=== PATIENT | male | born 1965 | race Caucasian/White ===

== ENCOUNTER 2018-04-07 20:10 | Emergency (ER) | payer BC ==
[~2018-04-07] VITALS: Ht 180.3 cm; Wt 117.9 kg
[2018-04-07 20:25] VITALS: BP 159/90
--- NOTE | 2018-04-07 20:27 | NUR ---
TO BED # 12 AMBULATORY, REPORT GIVEN TO LIZ DEL RIO.
--- NOTE | 2018-04-07 20:39 | NUR ---
52/M CAME IN ED WITH FAMILY/FRIEND, C/O 07/31 LOWER ABD PAIN, X4 DAYS. PT REPORTS RECENT TRAVEL FROM [place], PT WAS TREATED AT A HOSPITAL IN [place] 3 DAYS AGO. PT REPORTS FEVER OF 102 3 DAYS AGO, AFEBRILE AT THIS TIME. PT REPORTS SLIGHT SOB. PT REPORTS PT DENIES CP, COUGH, N/V/D; SKIN IS INTACT, PINK/WARM/DRY; AAOX4, PERRL, WITH EVEN AND STEADY GAIT; LUNGS CLEAR BL, BREATHING UNLABORED; HR EVEN AND REGULAR, BL PERIPHERAL PULSES PRESENT; BS ACTIVE X4, +TENDERNESS; PATIENT POSITIONED FOR COMFORT; HOB ELEVATED; BEDRAILS UP X2; BED DOWN.
[2018-04-07] MEDS ORDERED: NACL 0.9% 1,000 ML IV ONE ×2 (20:57→23:15)
[2018-04-07] MEDS ORDERED: ONDANSETRON 4 MG/2 ML VIAL IVP ONE (21:00)
[2018-04-07] MEDS ORDERED: MORPHINE SULFATE 4 MG/ML SYR IVP ONE (21:00)
[2018-04-07 21:14] LABS: BASOPHILS % (AUTO) 0.4 % (0.0-2.0); EOSINOPHILS # (AUTO) 0.1 K/uL (0-0.4); EOSINOPHILS % (AUTO) 1.4 % (0.0-4.0); HEMATOCRIT 39.4 % (36-52); HEMOGLOBIN 13.6 g/dL (12.0-18.0); LYMPHOCYTES # (AUTO) 1.4 K/uL (2.0-11.5); LYMPHOCYTES % (AUTO) 16.8 % (20.5-51.1); MEAN CORPUSCULAR HEMOGLOBIN 30 pg (27-31); MEAN CORPUSCULAR HGB CONC 35 g/dL (33-37); MONOCYTES # (AUTO) 1.2 K/uL (0.8-1.0); MONOCYTES % (AUTO) 14.4 % (1.7-9.3); NEUTROPHILS # (AUTO) 5.5 K/uL (1.8-7.7); PLATELET COUNT (AUTO) 158 K/uL (140-450); RED BLOOD CELL COUNT(AUTO) 4.59 MIL/uL (4.20-6.10); RED CELL DISTRIBUTION WIDTH 13.2 % (11.6-13.7); WHITE BLOOD COUNT (AUTO) 8.2 K/uL (4.8-10.8)
[2018-04-07 21:24] LABS: ANION GAP 9.7 (8-16); CARBON DIOXIDE 32.4 mmol/L (21-32); CREATININE 1.9 mg/dL (0.7-1.3); POTASSIUM 4.1 mmol/L (3.5-5.1)
[2018-04-07 21:30] LABS: ALBUMIN 3.4 g/dL (3.4-5.0); TOTAL BILIRUBIN 0.8 mg/dL (0.0-1.0)
--- NOTE | 2018-04-07 22:31 | NUR ---
PT REPORTS NO PAIN RELIEF FROM MORPHINE IVP, DENIES NAUSEA, WILL NOTIFY MD.
[2018-04-07] MEDS ORDERED: HYDROmorphone 1 MG/ML AMP IVP ONE (22:40)
[2018-04-07 22:42] LABS: APPEARANCE,URINE CLEAR (CLEAR); BILIRUBIN,URINE NEGATIVE (NEGATIVE); BLOOD, URINE NEGATIVE (NEGATIVE); COLOR,URINE YELLOW (YELLOW); LEUKOCYTE ESTERASE ,URINE NEGATIVE (NEGATIVE); NITRITE, URINE NEGATIVE (NEGATIVE); UGLUCOSE NEGATIVE (NEGATIVE)
[2018-04-07] MEDS ORDERED: KETOROLAC 30 MG/ML VIAL IVP ONE (23:15)
[2018-04-08] MEDS ORDERED: KETOROLAC 30 MG/ML VIAL IVP ONE (00:10)
[2018-04-08 00:35] VITALS: BP 107/67
--- NOTE | 2018-04-08 00:35 | NUR ---
Patient discharged with v/s stable. Written and verbal after care instructions given and explained. Patient alert, oriented and verbalized understanding of instructions. Ambulatory with steady gait. All questions addressed prior to discharge. ID band removed. Patient advised to follow up with PMD. Rx of FLOMAX, NAPROSYN, NORCO given. Patient educated on indication of medication including possible reaction and side effects. Opportunity to ask questions provided and answered.
== END 2018-04-08 00:35 | disposition home or self-care (01) ==
LOC: MED 20:10
DX: N20.1 Calculus of ureter (principal)
CPT/HCPCS: 36415; 74176; 80053; 81003; 83690; 85025; 96361; 96374; 96375; 96376; 99285; J1170; J1885; J2270; J2405; J7030